=== PATIENT | female | born 1975 | race Caucasian/White ===

== ENCOUNTER 2019-10-21 17:56 | Emergency (ER) | payer SELFPAY ==
[2019-10-21] MEDS ORDERED: Ketorolac Tromethamine 30 MG/ML VIAL ONE (18:46)
[2019-10-21 19:45] LABS: Troponin I Less than 0.010 ng/mL (< 0.028)
== END 2019-10-21 20:37 | disposition home or self-care (01) ==
LOC: ERS 17:56
DX: R07.89 Other chest pain (principal); F32.9 Major depressive disorder, single episode, unspecified; F43.10 Post-traumatic stress disorder, unspecified; F17.210 Nicotine dependence, cigarettes, uncomplicated; Z79.899 Other long term (current) drug therapy
CPT/HCPCS: 36415; 93005; 96374; J1885